=== PATIENT | male | born 1990 | race Caucasian/White ===

== ENCOUNTER 2019-08-22 17:46 | Emergency (ER) | payer SELFPAY ==
[~2019-08-22] VITALS: Ht 185.4 cm; Wt 65.9 kg
[2019-08-22 18:31] VITALS: BP 130/87
== END 2019-08-22 19:10 | disposition left against medical advice (07) ==
LOC: EDBD 17:50 → EMS 17:50
DX: R51 Headache (principal); Z53.21 Procedure and treatment not carried out due to patient leaving prior to being seen by health care provider

== ENCOUNTER 2019-08-22 22:35 | Emergency (ER) | payer MEDICAID ==
[~2019-08-22] VITALS: Ht 185.4 cm; Wt 68.2 kg
[2019-08-22 23:51] VITALS: BP 144/99
== END 2019-08-23 00:45 | disposition left against medical advice (07) ==
LOC: EMS 22:36
DX: R51 Headache (principal); Z53.21 Procedure and treatment not carried out due to patient leaving prior to being seen by health care provider